=== PATIENT | female | born 1965 | race Caucasian/White ===

== ENCOUNTER → 2017-11-30 | Outpatient (CLI) | payer BC ==
[~2017-11-30] MED LIST: ACET-1256 PO; CLON0.5T3 PO; DIAZ-165 PO; GADAVIST IV PRN; MECL1TAB40 PO; PRED20TA PO
--- NOTE | 2017-11-30 14:06 | DIAGNOSTIC IMAGING REPORT ---
MRI OF THE BRAIN AND IACS WITHOUT AND WITH IV CONTRAST CLINICAL HISTORY: H90.41 Right asymmetrical sensorineural hearing loss. Headaches. Blurred vision. Vertigo. COMPARISON STUDY: Noncontrast head CT performed November 20, 2017 TECHNIQUE: MRI of the brain was performed from the vertex to the skull base utilizing various T1 and T2 weighted sequences. Following the IV administration of 6.5 mL of Gadavist contrast, additional enhanced images were obtained. FINDINGS: Sagittal T1, axial diffusion, proton density and T2 weighted axial, coronal FLAIR, and pre and post axial T1-weighted images were acquired. These were supplemented with post gadolinium coronal T1 weighted images. No intra or extra-axial mass lesions are visualized. Axial diffusion-weighted images reveal no evidence of acute or subacute infarction. There is no evidence of ventricular dilatation. Proton density T2-weighted and FLAIR images reveal no significant intraparenchymal signal abnormalities. There are no abnormal flow voids. No cerebellopontine angle masses are visualized. The 7th and 8th nerve complexes appear normal bilaterally. There are no pathologically enhancing masses. IMPRESSION: Normal MRI of the brain for age Electronically signed by: Lawson Parker M.D. 11/30/2017 2:05 PM Dictated Date/Time: 11/30/2017 2:01 PM
== END | disposition home or self-care (01) ==
LOC: C.MRI 12:54
DX: H90.41 Sensorineural hearing loss, unilateral, right ear, with unrestricted hearing on the contralateral side (principal)